=== PATIENT | male | born 1970 | race Caucasian/White ===

== ENCOUNTER 2025-02-13 15:31 | Emergency (ER) | payer MEDICAID ==
[~2025-02-13] VITALS: Ht 165.1 cm; Wt 78.0 kg
[2025-02-13 15:39] VITALS: BP 120/80; PULSE 110; RESP 18; TEMP 36.6; O2SAT 98
[2025-02-13] MEDS: ACETAMINOPHEN 500MG TABLET PO ONE (17:49)
[2025-02-13] MEDS: HYDROCODONE/ACETAMINOPHEN 5/325MG TABLET PO ONE (19:13)
== END 2025-02-13 19:49 | disposition home or self-care (01) ==
LOC: ER 15:31
DX: S01.01XA Laceration without foreign body of scalp, initial encounter (principal); I10 Essential (primary) hypertension; E11.9 Type 2 diabetes mellitus without complications; Y04.0XXA Assault by unarmed brawl or fight, initial encounter; Y93.89 Activity, other specified; Y92.89 Other specified places as the place of occurrence of the external cause; Y99.8 Other external cause status
CPT/HCPCS: 70450; 12001; 99284; Z7610 ×4; A4606

== ENCOUNTER 2025-02-25 12:41 | Emergency (ER) | payer MEDICAID ==
[~2025-02-25] VITALS: Ht 160 cm; Wt 81.8 kg
[2025-02-25 12:42] VITALS: O2SAT 100
[2025-02-25 18:17] VITALS: BP 125/74; PULSE 58; RESP 18; TEMP 36.6
== END 2025-02-25 18:17 | disposition home or self-care (01) ==
LOC: ER 12:47
DX: S01.01XD Laceration without foreign body of scalp, subsequent encounter (principal); X58.XXXD Exposure to other specified factors, subsequent encounter; Z90.49 Acquired absence of other specified parts of digestive tract; I10 Essential (primary) hypertension; E11.9 Type 2 diabetes mellitus without complications
CPT/HCPCS: 99281; Z7610; A4606